=== PATIENT | male | born 1955 | race Caucasian/White ===

== ENCOUNTER 2017-01-11 00:44 | Observation (INO) | payer BC ==
[~2017-01-11] VITALS: Ht 188 cm; Wt 104.0 kg
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
--- NOTE | ~2017-01-11 | OR ---
PATIENT'S NAME: OSCAR MUÑOZ [facility] AGE: 61 Y [address] 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 POSTOPERATIVE DIAGNOSIS: Acute appendicitis. PROCEDURE: Laparoscopic appendectomy. ANESTHESIA: General with 17 mL 0.5% Marcaine local. SPECIMEN: Appendix with acute inflammatory changes, fecalith. INDICATION: The patient is a 61-year-old gentleman, who had a 12-hour history of abdominal pain, reviewed by Dr. Shannon in [place], found to have elevated white count, low-grade temp, acute peritoneal findings in the right lower quadrant and CT confirmation of acute appendicitis. We offered laparoscopic appendectomy. The procedure, benefits, and risks were explained. DESCRIPTION OF PROCEDURE: After informed consent, the patient was taken to the operating room, and after general endotracheal anesthesia, the patient's abdomen was prepped and draped into a sterile field. Time-out performed. We confirmed the patient, planned procedure and administration of preop antibiotics. Local anesthetic infiltrated prior to each incision. The first one made below the umbilicus, carried down to identify the anterior fascia through which a Veress needle inserted. Pneumoperitoneum created. A 5 mm trocar and laparoscope inserted under direct vision. Right upper quadrant 5 mm port and suprapubic midline 12 mm port were placed. There was no evidence of gross contamination on initial view of the right lower quadrant. The terminal ilium and the cecum had a very tight peritoneal reflection, which was scored. We rolled the cecum medially and then we could see a retrocecal appendix with acute cholecystitis, very adherent to the posterior wall of the cecum with manipulation and freeing up the peritoneal reflection. We were able to strip down and elevate up the distal one-half the appendix. The mesoappendix was short. We created a window at the base of the appendix and elected to go ahead and divide the appendiceal stump with an Endo-ILEANA 35 staple device. Then, we took 2 staple loads to divide the mesoappendix next to the appendix wall. We then placed the appendix in EndoCatch bag and brought out through the suprapubic incision. We irrigated the right lower PATIENT'S NAME: OSCAR MUÑOZ [facility] AGE: 61 Y [address] ROOM: [address] [address] LOCATION: [facility] [place] ADMIT DATE: 01/11/2017 OR/Procedure Report DISCHARGE DATE: FAMILY PHYSICIAN: Jeremy Sanders MD ATTENDING PHYSICIAN: Nathan Baltazar. We inspected the staple lines. Hemostasis noted. The trocars removed. The 12 mm fascial defect was closed under direct vision with an Endo Stitch of 0 Vicryl. We then removed all trocars, released pneumoperitoneum, closed the skin with subcuticular 4-0 Vicryl. Steri-Strips and sterile dressings were applied. The patient tolerated the procedure well, transferred to recovery in stable condition. NATHAN BALTAZAR MD WTS/modl /[id number] d: 01/11/17 1430 t: 01/24/17 0953, OPERATIVE SUMMARY
[2017-01-11 06:58] LABS: PROTIME 10.5 SECONDS (9.8-11.4)
[2017-01-12] MEDS ORDERED: NORCO 5-325 TA1 EACH PO (09:14)
== END 2017-01-12 10:25 | disposition disaster alternative care site (69) ==
LOC: GMSU 00:44
PROVIDERS: ADMIT Surgery
PROC: 0DTJ4ZZ Resection of Appendix, Percutaneous Endoscopic Approach (ICD-10-PCS; principal; 2017-01-11)
DX: K35.80 Unspecified acute appendicitis (principal); Z87.891 Personal history of nicotine dependence; Z86.19 Personal history of other infectious and parasitic diseases; Z98.890 Other specified postprocedural states
CPT/HCPCS: J1335; J2270; J2405; J3010; J7030